=== PATIENT | male | born 1965 | race Caucasian/White ===

== ENCOUNTER 2022-10-01 20:28 | Emergency (ER) | payer OTHER ==
[2022-10-01 20:41] VITALS: O2SAT 98
[2022-10-01 20:52] LABS: Absolute Neutrophil Ct (ANC) 6.86 x10^3/uL (1.4-6.9); Basophil (Absolute #) 0.05 x10^3/uL (0-0.4); Eosinophil % 0.8 % (0.00-5.0); Eosinophil (Absolute #) 0.09 x10^3/uL (0-0.5); Hematocrit 44.2 % (42-50); Hemoglobin 14.3 g/dL (12.5-18.0); Lymphocyte (Absolute #) 3.08 x10^3/uL (1.0-4.6); Lymphocytes % 27.1 % (24.0-44.0); Mean Cell Volume 89.5 fL (78-100); Mean Corpuscular Hemoglobin 28.9 pg (26-32); Mean Corpuscular Hgb Concent. 32.4 g/dL (32-36); Monocyte (Absolute #) 1.26 x10^3/uL (0.0-1.3); Monocytes % 11.1 % (0.0-12.0); Neutrophil % 60.2 % (36.0-66.0); Platelet Count 439 x10^3/uL (150-450); Red Blood Count 4.94 x10^6/uL (4.1-5.6); Red Cell Distribution Width 12.9 % (11.5-14.0); White Blood Count 11.4 x10^3/uL (4.0-10.5)
[2022-10-01 21:05] LABS: ALBUMIN 4.4 g/dL (3.5-5.0); ALKALINE PHOSPHATASE 67 U/L (38-126); AMYLASE 130 U/L (30-110); ANION GAP 12.7 MEQ/L (5-15); BLOOD UREA NITROGEN 14 mg/dL (9-20); CHLORIDE 98 mmol/L (98-107); Calcium 9.2 mg/dL (8.4-10.2); Carbon Dioxide 28 mmol/L (22-30); Creatinine 1 0.92 mg/dL (0.66-1.25); EST GLOMERULAR FILTRATION RATE > 60.0 ML/MIN; Glucose 201 mg/dL (74-106); LIPASE 168 U/L (23-300); Potassium 4.2 mmol/L (3.5-5.1); SGOT/AST 30 U/L (17-59); SGPT/ALT 36 U/L (0-50); SODIUM 135 mmol/L (137-145); Total Protein 7.8 g/dL (6.3-8.2)
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
[2022-10-01 21:29] LABS: INR 0.91 (0.8-3.0); PROTIME 9.7 SECONDS (9.4-12.5); PTT 26.8 SECONDS (25.1-36.5)
--- NOTE | 2022-10-01 21:34 | XRAY ---
Indication: Pain following bulldozer rollover. Multiple contiguous axial images obtained through the head without contrast. Comparison: None Normal appearing brain parenchyma, ventricles, and bony calvarium for patient's age. Impression: Normal CT head without contrast exam.
--- NOTE | 2022-10-01 21:38 | XRAY ---
Indication: Pain following bulldozer rollover. Multiple contiguous axial images obtained through the cervical spine. Sagittal and coronal reformatted images obtained. Comparison: None Axial images negative for acute fracture, suspicious bony lesions, or spinal canal stenosis. Incidental C6-C7 congenital fusion. Minimal C3-C4 and C5-C6 degenerative endplate spurring. Mild multilevel bilateral degenerative facet arthropathy. Sagittal and coronal reformatted images demonstrates lordotic straightening, positional versus paraspinal spasm. C3-C4 and C5-C6 disc space loss. No acute compression fracture, subluxation, or jumped facet. Normal appearing craniocervical junction. Visualized noncontrasted soft tissues are unremarkable. Impression: 1. Negative acute fracture/subluxation. 2. Cervical lordotic straightening, positional versus paraspinal spasm. 3. Mild multilevel degenerative changes and incidental C6-7 C7 congenital fusion.
--- NOTE | 2022-10-01 21:40 | XRAY ---
Indication: Pain following bulldozer rollover. Multiple contiguous axial images obtained through the chest using 100 cc Isovue 370 contrast. Comparison: None Lungs demonstrates minimal dependent atelectasis. No suspicious pulmonary mass/nodule, infiltrate, effusion, or pneumothorax. Heart not enlarged. Aorta is normal in course and caliber. Small subcarinal calcified nodes. No pathologic mediastinal/hilar lymphadenopathy. Bony thorax intact. CT abdomen/pelvis reported separately. Impression: Normal CT chest with contrast exam.
--- NOTE | 2022-10-01 21:46 | XRAY ---
Indication: Pain following bulldozer rollover. Multiple contiguous axial images obtained through the abdomen and pelvis using 100 cc Isovue 370 contrast. Comparison: None CT chest reported separately. Noncontrasted stomach and bowel loops appear nonobstructed. Scattered descending and sigmoid diverticulosis. Left total nephrectomy. 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 No free fluid/air. Remaining liver, gallbladder, pancreas, adrenal glands, right kidney, right ureter, and bladder are unremarkable. Minimal aortic calcifications. No AAA or pathological retroperitoneal lymphadenopathy. 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 No ventral or inguinal hernias. Impression: 1. 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 abdomen/pelvis with contrast exam is negative.
[2022-10-01 21:58] LABS: Appearance CLEAR (CLEAR); Bilirubin NEGATIVE (NEGATIVE); Dipstick done @ ? MAIN LAB; Glucose 100 mg/dL (NEGATIVE); Ketones NEGATIVE (NEGATIVE); Nitrite NEGATIVE (NEGATIVE); Ph 5.5 (5-6); Protein,Urine Dip NEGATIVE (Negative); RBC NEGATIVE Ery/ul (0-5); Urobilinogen 0.2 mg/dL (0-1)
[2022-10-01 22:04] VITALS: BP 128/56; PULSE 76
[2022-10-01 22:04] LABS: Urine Cultured Indicated? NO
== END 2022-10-01 22:05 | disposition home or self-care (01) ==
LOC: ED 20:28
DX: S20.211A Contusion of right front wall of thorax, initial encounter (principal); V85.5XXA Driver of special construction vehicle injured in nontraffic accident, initial encounter; Y99.0 Civilian activity done for income or pay; M54.6 Pain in thoracic spine; I10 Essential (primary) hypertension
CPT/HCPCS: 36415; 70450; 71260; 72125; 74177; 80053; 81015; 82150; 83690; 84484; 85025; 85610; 85730; 99283; G0480; 80307